=== PATIENT | female | born 1945 | race African-American/Black ===

== ENCOUNTER 2017-04-24 12:19 | Emergency (ER) | payer MEDICARE, MEDICAID ==
[~2017-04-24] VITALS: Ht 152.4 cm; Wt 55.0 kg
[~2017-04-24 12:19] MED LIST: ASPI-1159 PO; BECL8.7A6 IH; DIPH25CA83 PO; FURO20TA4 PO; METF500T4 PO; MIRT-91 PO; OMEP20CA10 PO; SIMV40TA5 PO; VERA240C2 PO
[2017-04-24] MEDS ORDERED: ACETAMINOPHEN 325MG TABLET PO ONE (16:00)
[2017-04-24] MEDS ORDERED: TETANUS, DIPHTHERIA, PERTUSSIS VAC/PF 0.5ML (>7YR OLD) IM ONE (16:30)
[2017-04-24 16:31] VITALS: BP 116/48
== END 2017-04-24 17:19 | disposition home or self-care (01) ==
LOC: ER 12:30
DX: S09.90XA Unspecified injury of head, initial encounter (principal); J44.9 Chronic obstructive pulmonary disease, unspecified; I10 Essential (primary) hypertension; V23.4XXA Motorcycle driver injured in collision with car, pick-up truck or van in traffic accident, initial encounter; Y93.89 Activity, other specified; Y92.488 Other paved roadways as the place of occurrence of the external cause; J45.909 Unspecified asthma, uncomplicated; Z79.82 Long term (current) use of aspirin
CPT/HCPCS: 70450; 70486; 90471; 90715; 99284

== ENCOUNTER 2017-07-11 22:10 | Emergency (ER) | payer MEDICARE, MEDICAID ==
[~2017-07-11] VITALS: Ht 152.4 cm; Wt 52.5 kg
[~2017-07-11 22:10] MED LIST changes: -VERA240C2 PO
[2017-07-12 01:59] LABS: CLARITY URINE CLEAR (CLEAR); COLOR URINE YELLOW (YELLOW); KETONES URINE NEGATIVE (NEGATIVE); LEUKOCYTE ESTERASE URINE 1+ (NEGATIVE); NITRITE URINE NEGATIVE (NEGATIVE); OCCULT BLOOD URINE NEGATIVE (NEGATIVE); PROTEIN URINE NEGATIVE (NEGATIVE); SPECIFIC GRAVITY URINE 1.013 (1.005-1.030); UROBILINOGEN URINE 0.2 E.U./dL (0.2-1.0)
[2017-07-12 01:59] LABS: HEMATOCRIT. 42.7 % (36.0-48.0); MEAN CORPUSCULAR HEMOGLOBIN 31.4 pg (28.0-32.0); MEAN CORPUSCULAR VOLUME 95.9 fL (81.0-99.0); MEAN PLATELET VOLUME 8.2 fl (7.4-10.4); PLATELET 293 x1000/uL (130-400); RED BLOOD CELL COUNT 4.45 mill/uL (4.2-5.4); RED CELL DISTRIBUTION WIDTH 13.4 % (11.6-14.6)
[2017-07-12] MEDS: SODIUM CHLORIDE 0.9% 1,000 ML IV ONE (02:00)
[2017-07-12] MEDS: ONDANSETRON HCL 4MG/2ML VIAL IV STA (02:00)
[2017-07-12] MEDS: FAMOTIDINE 20MG/2ML VIAL IV STA (02:00)
[2017-07-12 02:04] LABS: INR 1.1; PROTHROMBIN TIME 11.2 sec (9.4-11.6)
[2017-07-12 02:10] LABS: *AMPHETAMINES SCREEN URINE NEGATIVE (NEGATIVE); *BARBITURATES SCREEN URINE NEGATIVE (NEGATIVE); *BENZODIAZEPINES SCREEN URINE NEGATIVE (NEGATIVE); *COCAINE SCREEN URINE NEGATIVE (NEGATIVE); CANNABINOID URINE SCREEN PRESUMTIVE POSITIVE (NEGATIVE); METHADONE URINE SCREEN NEGATIVE (NEGATIVE); OPIATES URINE SCREEN NEGATIVE (NEGATIVE); PHENCYCLIDINE URINE SCREEN NEGATIVE (NEGATIVE)
[2017-07-12 02:16] LABS: CARBON DIOXIDE 26 mEq/L (21-32); CHLORIDE 95 mEq/L (98-107); ETHANOL BLOOD < 10 mg/dL; TROPONIN I < 0.02 ng/mL (0.00-0.04)
[2017-07-12 04:40] VITALS: BP 140/77
[2017-07-12 04:52] LABS: PLATELET ESTIMATE NORMAL
[2017-07-13] MEDS ORDERED: LISI-604 PO (00:14)
[2017-07-13] MEDS ORDERED: ZOLP5TAB8 PO (00:19)
[2017-07-13] MEDS ORDERED: AMLO2.5T45 PO (00:19)
[2017-07-13] MEDS ORDERED: MEGE400O23 PO (00:19)
[2017-07-13] MEDS ORDERED: POT25TAB5 PO (00:19)
[2017-07-13] MEDS ORDERED: TRAM50TA3 PO (00:19)
[2017-07-13] MEDS ORDERED: METO25TA6 PO (00:19)
[2017-07-13] MEDS ORDERED: PANT40TA4 PO (00:19)
== END 2017-07-12 04:42 | disposition home or self-care (01) ==
LOC: ER 22:10
DX: R10.13 Epigastric pain (principal); R11.2 Nausea with vomiting, unspecified; J44.9 Chronic obstructive pulmonary disease, unspecified; E11.9 Type 2 diabetes mellitus without complications; I10 Essential (primary) hypertension; K21.9 Gastro-esophageal reflux disease without esophagitis; F10.20 Alcohol dependence, uncomplicated; Z79.82 Long term (current) use of aspirin
CPT/HCPCS: 36415; 71010; 80053; 80305; 81001; 83690; 84484; 85025; 85610; 93005; 96374; 96375; 99285; G0482; J2405; J3490; J7030

== ENCOUNTER 2018-09-04 18:30 | Inpatient (IN) | payer MEDICARE, MEDICAID ==
[~2018-09-04] VITALS: Ht 152.4 cm; Wt 47.6 kg
[~2018-09-04 18:30] MED LIST changes: +AMLO2.5T45 PO; +LISI-604 PO; +MEGE400O23 PO; +METF-414 PO; -METF500T4 PO; +METO25TA6 PO; +PANT40TA4 PO; +POT25TAB5 PO; +TRAM50TA3 PO; +ZOLP5TAB8 PO
[2018-09-04] MEDS ORDERED: METHYLPREDNISOLONE SOD SUCC 125 MG/2 ML VIAL IV STA (22:30)
[2018-09-04] MEDS ORDERED: IPRATROPIUM/ALBUTEROL 0.5-3(2.5)MG/3ML NEB HHN ONE (22:30)
[2018-09-04] MEDS ORDERED: LEVOFLOXACIN 750MG PREMIX 150 ML IV ONE (22:30)
[2018-09-04 23:08] LABS: BG BASE EXCESS -6.9 mmol/L (-2.0-2.0); BG CARBOXYHEMOGLOBIN 0.7 % (0.5-1.5); BG DEOXYHEMOGLOBIN 0.8 % (0.0-5.0); BG FRACTION INSPIRED OXYGEN 60; BG HCO3 ACT 16.8 mmol/L (22.0-26.0); BG METHEMOGLOBIN 0.4 % (0.0-1.5); BG OXYGEN SATURATION 99.2 % (92.0-98.5); BG OXYHEMOGLOBIN 98.1 % (94.0-97.0); BG PCO2 28.9 mmHg (35.0-45.0); BG PH 7.383 (7.350-7.450); BG PO2 234.4 mmHg (75.0-100.0); BG SAMPLE SITE RIGHT RADIAL; BG TOTAL HEMOGLOBIN 12.5 g/dL (12.0-18.0)
[2018-09-04 23:41] LABS: HEMATOCRIT. 35.9 % (36.0-48.0); HEMOGLOBIN. 11.9 g/dL (12.0-16.0); MEAN CORPUSCULAR HEMOGLOBIN 32.2 pg (28.0-32.0); MEAN CORPUSCULAR VOLUME 97.1 fL (81.0-99.0); MEAN PLATELET VOLUME 7.6 fl (7.4-10.4); PLATELET 363 x1000/uL (130-400); RED CELL DISTRIBUTION WIDTH 15.2 % (11.6-14.6)
[2018-09-04 23:45] LABS: CHLORIDE 108 mEq/L (98-107)
[2018-09-04 23:49] LABS: ETHANOL BLOOD < 10 mg/dL
[2018-09-04 23:54] LABS: CREATINE KINASE 65 IU/L (26-192)
[2018-09-04 23:57] LABS: CREATINE KINASE MB FRACTION 1.1 ng/mL (0.5-3.6)
[2018-09-05 00:02] LABS: PARTIAL THROMBOPLASTIN TIME 22.6 sec (23.4-31.0); PROTHROMBIN TIME 9.7 sec (9.1-11.1)
[2018-09-05] MEDS ORDERED: SODIUM CHLORIDE 0.9% 500 ML IV ONE (00:10)
[2018-09-05 00:15] LABS: CLARITY URINE CLEAR (CLEAR); COLOR URINE YELLOW (YELLOW); KETONES URINE NEGATIVE (NEGATIVE); LEUKOCYTE ESTERASE URINE 3+ (NEGATIVE); NITRITE URINE NEGATIVE (NEGATIVE); OCCULT BLOOD URINE NEGATIVE (NEGATIVE); PROTEIN URINE NEGATIVE (NEGATIVE); SPECIFIC GRAVITY URINE 1.015 (1.005-1.030)
[2018-09-05 00:55] LABS: PLATELET ESTIMATE NORMAL
[2018-09-05 01:05] LABS: *AMPHETAMINES SCREEN URINE NEGATIVE (NEGATIVE); *BARBITURATES SCREEN URINE NEGATIVE (NEGATIVE); *BENZODIAZEPINES SCREEN URINE NEGATIVE (NEGATIVE); *COCAINE SCREEN URINE NEGATIVE (NEGATIVE)
[2018-09-05 01:06] LABS: CANNABINOID URINE SCREEN PRESUMTIVE POSITIVE (NEGATIVE); METHADONE URINE SCREEN NEGATIVE (NEGATIVE); OPIATES URINE SCREEN NEGATIVE (NEGATIVE); PHENCYCLIDINE URINE SCREEN NEGATIVE (NEGATIVE)
[2018-09-05] MEDS ORDERED: ONDANSETRON HCL 4MG/2ML INJ IV PRN (09:15)
[2018-09-05] MEDS ORDERED: IPRATROPIUM/ALBUTEROL 0.5-3(2.5)MG/3ML NEB HHN PRN (09:15)
[2018-09-05] MEDS ORDERED: ACETAMINOPHEN 325MG TABLET PO PRN (09:15)
[2018-09-05] MEDS ORDERED: CEFTRIAXONE 1 G PREMIX 50 ML IV SCH (11:45)
[2018-09-05] MEDS: METHYLPREDNISOLONE SOD SUCC 40 MG/ML VIAL IV SCH ×2 (12:02→21:02)
[2018-09-05] MEDS: IPRATROPIUM/ALBUTEROL 0.5-3(2.5)MG/3ML NEB HHN SCH (12:20)
[2018-09-05 16:00] VITALS: BP 152/70
[2018-09-05 16:45] VITALS: BP 150/68
[2018-09-05] MEDS ORDERED: DIATR MEGLU/DIATRIZOATE SOLN 30ML PO SCH (17:00)
[2018-09-05] MEDS: AZITHROMYCIN 500 MG TABLET PO SCH (17:24)
[2018-09-05] MEDS: MONTELUKAST SODIUM 10MG TABLET PO SCH (17:24)
[2018-09-05] MEDS: ENOXAPARIN 40MG/0.4ML SYR SUBCUT SCH (17:28)
[2018-09-05 20:00] VITALS: BP 126/69
[2018-09-05] MEDS: GUAIFENESIN 600MG ER TABLET PO SCH (21:02)
[2018-09-06] VITALS (7 sets, daily range): BP systolic 123–177; BP diastolic 41–70
[2018-09-06] MEDS: IPRATROPIUM/ALBUTEROL 0.5-3(2.5)MG/3ML NEB HHN SCH ×7 (01:25→21:52)
[2018-09-06] MEDS: METHYLPREDNISOLONE SOD SUCC 40 MG/ML VIAL IV SCH ×3 (04:04→21:16)
[2018-09-06] MEDS ORDERED: DIATR MEGLU/DIATRIZOATE SOLN 30ML PO SCH (06:00)
[2018-09-06 07:55] LABS: HEMATOCRIT. 37.8 % (36.0-48.0); HEMOGLOBIN. 12.5 g/dL (12.0-16.0); MEAN CORPUSCULAR HEMOGLOBIN 31.8 pg (28.0-32.0); MEAN CORPUSCULAR VOLUME 95.8 fL (81.0-99.0); MEAN PLATELET VOLUME 7.4 fl (7.4-10.4); PLATELET 379 x1000/uL (130-400); RED BLOOD CELL COUNT 3.94 mill/uL (4.2-5.4); RED CELL DISTRIBUTION WIDTH 15.5 % (11.6-14.6)
[2018-09-06 08:05] LABS: CHLORIDE 109 mEq/L (98-107)
[2018-09-06] MEDS: GUAIFENESIN 600MG ER TABLET PO SCH ×2 (10:02→21:16)
[2018-09-06] MEDS: AZITHROMYCIN 500 MG TABLET PO SCH (10:02)
[2018-09-06 10:32] LABS: PLATELET ESTIMATE NORMAL
[2018-09-06] MEDS: CEFTRIAXONE 1 G PREMIX 50 ML IV SCH (10:53)
[2018-09-06] MEDS ORDERED: IOHEXOL-350 100 ML BOTTLE ONE (13:59)
[2018-09-06] MEDS ORDERED: OMEPRAZOLE 20MG CAPSULE EXTENDED RELEASE PO SCH (14:15)
[2018-09-06] MEDS: MEGESTROL ACETATE 400 MG/10 ML UDC PO SCH ×3 (15:07→21:00)
[2018-09-06] MEDS: MIRTAZAPINE 30MG TABLET PO SCH (19:56)
[2018-09-06] MEDS: MONTELUKAST SODIUM 10MG TABLET PO SCH (19:56)
[2018-09-06] MEDS: ENOXAPARIN 40MG/0.4ML SYR SUBCUT SCH (19:59)
[2018-09-06] MEDS: ATORVASTATIN CALCIUM 40MG TABLET PO SCH (21:16)
[2018-09-07] VITALS: BP 138/70
[2018-09-07] MEDS: IPRATROPIUM/ALBUTEROL 0.5-3(2.5)MG/3ML NEB HHN SCH ×5 (01:04→20:28)
[2018-09-07 04:00] VITALS: BP 153/49
[2018-09-07] MEDS: METHYLPREDNISOLONE SOD SUCC 40 MG/ML VIAL IV SCH ×3 (04:02→20:00)
[2018-09-07 06:45] LABS: CHLORIDE 109 mEq/L (98-107)
[2018-09-07] MEDS: OMEPRAZOLE 20MG CAPSULE EXTENDED RELEASE PO SCH ×2 (06:45→08:48)
[2018-09-07 06:46] LABS: MEAN CORPUSCULAR HEMOGLOBIN 31.9 pg (28.0-32.0); MEAN CORPUSCULAR VOLUME 95.5 fL (81.0-99.0); MEAN PLATELET VOLUME 7.6 fl (7.4-10.4); PLATELET 388 x1000/uL (130-400); RED BLOOD CELL COUNT 4.09 mill/uL (4.2-5.4); RED CELL DISTRIBUTION WIDTH 15.2 % (11.6-14.6)
[2018-09-07 08:00] VITALS: BP 161/68
[2018-09-07] MEDS: MIRTAZAPINE 30MG TABLET PO SCH ×2 (08:48→17:43)
[2018-09-07] MEDS: GUAIFENESIN 600MG ER TABLET PO SCH ×2 (08:49→21:00)
[2018-09-07] MEDS: AZITHROMYCIN 500 MG TABLET PO SCH (08:49)
[2018-09-07] MEDS: CEFTRIAXONE 1 G PREMIX 50 ML IV SCH (10:00)
[2018-09-07 12:00] VITALS: BP 159/58
[2018-09-07 12:26] LABS: NUCLEATED RED BLOOD CELLS 1 /100 WBC; PLATELET ESTIMATE NORMAL
[2018-09-07] MEDS: AMLODIPINE 5MG TABLET PO SCH (12:48)
[2018-09-07] MEDS: METOPROLOL TARTRATE 50MG TABLET PO SCH ×2 (12:48→21:00)
[2018-09-07] MEDS: MEGESTROL ACETATE 400 MG/10 ML UDC PO SCH (13:00)
[2018-09-07] MEDS: CEFTRIAXONE 1,000 MG in DEXTROSE 5% WATER 50 ML IV SCH (15:32)
[2018-09-07 16:00] VITALS: BP 116/50
[2018-09-07] MEDS: ENOXAPARIN 40MG/0.4ML SYR SUBCUT SCH (17:43)
[2018-09-07] MEDS: MONTELUKAST SODIUM 10MG TABLET PO SCH (17:43)
[2018-09-07] MEDS: METFORMIN HCL 500MG TABLET PO SCH (17:43)
[2018-09-07 20:00] VITALS: BP 116/77
[2018-09-07] MEDS: ATORVASTATIN CALCIUM 40MG TABLET PO SCH (21:00)
[2018-09-07] MEDS: INSULIN GLARGINE UD 100 UNITS/ML SYR SUBCUT SCH (22:00)
[2018-09-08] VITALS: BP 110/57
[2018-09-08] MEDS: IPRATROPIUM/ALBUTEROL 0.5-3(2.5)MG/3ML NEB HHN SCH ×7 (00:38→21:05)
[2018-09-08] MEDS: METHYLPREDNISOLONE SOD SUCC 40 MG/ML VIAL IV SCH (03:15)
[2018-09-08 04:01] VITALS: BP 114/62
[2018-09-08 06:59] LABS: CHLORIDE 106 mEq/L (98-107)
[2018-09-08 07:05] LABS: BASOPHILS % 0.2 % (0.0-2.0); HEMATOCRIT. 40.3 % (36.0-48.0); HEMOGLOBIN. 13.1 g/dL (12.0-16.0); MEAN CORPUSCULAR HEMOGLOBIN 31.1 pg (28.0-32.0); MEAN CORPUSCULAR VOLUME 95.8 fL (81.0-99.0); MEAN PLATELET VOLUME 7.5 fl (7.4-10.4); MONOCYTES % 13.7 % (2.0-8.0); NEUTROPHILS % 78.1 % (40.0-76.0); PLATELET 411 x1000/uL (130-400); RED BLOOD CELL COUNT 4.21 mill/uL (4.2-5.4); RED CELL DISTRIBUTION WIDTH 15.4 % (11.6-14.6)
[2018-09-08 08:00] VITALS: BP 144/60
[2018-09-08] MEDS: MEGESTROL ACETATE 400 MG/10 ML UDC PO SCH ×5 (09:00→20:54)
[2018-09-08] MEDS: AZITHROMYCIN 500 MG TABLET PO SCH (09:07)
[2018-09-08] MEDS: FAMOTIDINE 20MG TABLET PO SCH (09:08)
[2018-09-08] MEDS: METOPROLOL TARTRATE 50MG TABLET PO SCH ×2 (09:08→20:54)
[2018-09-08] MEDS: GUAIFENESIN 600MG ER TABLET PO SCH ×2 (09:08→20:54)
[2018-09-08] MEDS: MIRTAZAPINE 30MG TABLET PO SCH ×2 (09:09→16:34)
[2018-09-08] MEDS: AMLODIPINE 5MG TABLET PO SCH (09:09)
[2018-09-08] MEDS: METFORMIN HCL 500MG TABLET PO SCH ×2 (09:13→16:35)
[2018-09-08] MEDS: PREDNISONE 20MG TABLET PO SCH (10:36)
[2018-09-08] MEDS: ENOXAPARIN 40MG/0.4ML SYR SUBCUT SCH (10:51)
[2018-09-08 12:35] VITALS: BP 144/63
[2018-09-08] MEDS: MONTELUKAST SODIUM 10MG TABLET PO SCH (16:34)
[2018-09-08 16:43] VITALS: BP 144/55
[2018-09-08 19:51] VITALS: BP 135/63
[2018-09-08] MEDS ORDERED: DEXTROSE 50% WATER 50ML SYRINGE IV PRN (20:15)
[2018-09-08] MEDS: ATORVASTATIN CALCIUM 40MG TABLET PO SCH (20:54)
[2018-09-08] MEDS: BLOOD SUGAR DIAGNOSTIC STRIP TEST SCH (20:55)
[2018-09-08] MEDS: INSULIN LISPRO 100 UNITS/ML SUBCUT SCH (21:00)
[2018-09-08] MEDS: INSULIN GLARGINE UD 100 UNITS/ML SYR SUBCUT SCH (21:01)
[2018-09-09 00:05] VITALS: BP 132/52
[2018-09-09] MEDS: IPRATROPIUM/ALBUTEROL 0.5-3(2.5)MG/3ML NEB HHN SCH ×5 (01:05→16:15)
[2018-09-09 04:00] VITALS: BP 133/49
[2018-09-09 07:12] LABS: BASOPHILS % 0.2 % (0.0-2.0); EOSINOPHILS % 0.1 % (0.0-5.0); HEMATOCRIT. 38.9 % (36.0-48.0); HEMOGLOBIN. 12.9 g/dL (12.0-16.0); LYMPHOCYTES % 10.7 % (20.0-50.0); MEAN CORPUSCULAR HEMOGLOBIN 31.8 pg (28.0-32.0); MEAN CORPUSCULAR VOLUME 96.1 fL (81.0-99.0); MEAN PLATELET VOLUME 7.6 fl (7.4-10.4); MONOCYTES % 12.2 % (2.0-8.0); NEUTROPHILS % 76.8 % (40.0-76.0); PLATELET 369 x1000/uL (130-400); RED BLOOD CELL COUNT 4.05 mill/uL (4.2-5.4); RED CELL DISTRIBUTION WIDTH 15.1 % (11.6-14.6)
[2018-09-09] MEDS: BLOOD SUGAR DIAGNOSTIC STRIP TEST SCH ×2 (07:40→13:18)
[2018-09-09 08:01] LABS: CHLORIDE 107 mEq/L (98-107)
[2018-09-09] MEDS: INSULIN LISPRO 100 UNITS/ML SUBCUT SCH ×2 (08:10→13:10)
[2018-09-09] MEDS: MEGESTROL ACETATE 400 MG/10 ML UDC PO SCH (08:39)
[2018-09-09] MEDS: METOPROLOL TARTRATE 50MG TABLET PO SCH (08:40)
[2018-09-09] MEDS: CEFTRIAXONE 1,000 MG in DEXTROSE 5% WATER 50 ML IV SCH (08:40)
[2018-09-09] MEDS: METFORMIN HCL 500MG TABLET PO SCH (08:40)
[2018-09-09] MEDS: FAMOTIDINE 20MG TABLET PO SCH (08:40)
[2018-09-09] MEDS: AMLODIPINE 5MG TABLET PO SCH (08:40)
[2018-09-09] MEDS: AZITHROMYCIN 500 MG TABLET PO SCH (08:40)
[2018-09-09] MEDS: GUAIFENESIN 600MG ER TABLET PO SCH (08:40)
[2018-09-09] MEDS: MIRTAZAPINE 30MG TABLET PO SCH (08:40)
[2018-09-09] MEDS: PREDNISONE 20MG TABLET PO SCH (09:41)
[2018-09-09 12:00] VITALS: BP 152/59
[2018-09-09 14:38] VITALS: BP 152/59
== END 2018-09-09 14:30 | disposition home or self-care (01) | DRG 48 ==
LOC: ER 18:55 → 7WST 09-05 01:03 → EDBEDREQTM 09-05 01:27 → EDBEDREQ 09-05 01:27 → EDBEDREQDT 09-05 01:27 → ENRESERV 09-05 13:57 → 7WST 09-05 16:25
PROVIDERS: ADMIT Internal Medicine; ATTEND Internal Medicine
DX: G90.8 Other disorders of autonomic nervous system (principal); E46 Unspecified protein-calorie malnutrition; E87.8 Other disorders of electrolyte and fluid balance, not elsewhere classified; I27.20 Pulmonary hypertension, unspecified; J44.1 Chronic obstructive pulmonary disease with (acute) exacerbation; I65.23 Occlusion and stenosis of bilateral carotid arteries; E11.9 Type 2 diabetes mellitus without complications; J32.9 Chronic sinusitis, unspecified; K75.9 Inflammatory liver disease, unspecified; N39.0 Urinary tract infection, site not specified; F12.90 Cannabis use, unspecified, uncomplicated; E78.5 Hyperlipidemia, unspecified; E78.00 Pure hypercholesterolemia, unspecified; F14.90 Cocaine use, unspecified, uncomplicated; F17.200 Nicotine dependence, unspecified, uncomplicated; F32.9 Major depressive disorder, single episode, unspecified; F41.9 Anxiety disorder, unspecified; G43.909 Migraine, unspecified, not intractable, without status migrainosus; H91.90 Unspecified hearing loss, unspecified ear; I10 Essential (primary) hypertension; K21.9 Gastro-esophageal reflux disease without esophagitis; K80.20 Calculus of gallbladder without cholecystitis without obstruction; M19.90 Unspecified osteoarthritis, unspecified site; M47.812 Spondylosis without myelopathy or radiculopathy, cervical region; Z79.82 Long term (current) use of aspirin; Z79.84 Long term (current) use of oral hypoglycemic drugs; Z79.899 Other long term (current) drug therapy; Z80.3 Family history of malignant neoplasm of breast; Z82.49 Family history of ischemic heart disease and other diseases of the circulatory system; Z68.20 Body mass index [BMI] 20.0-20.9, adult
CPT/HCPCS: 36415; 36600; 70498; 70551; 71045; 74176; 80048; 80061; 80305; 82375; 82550; 82553; 82805; 82962; 83036; 83605; 83880; 84443; 84484; 93005; 93306; 93880; 94640; 96365; 96375; 99285; J0696; J1650; J1815; J1956; J2920; J2930; J7040; J7050; J7060; J7512; J7620; Q9963; Q9967

== ENCOUNTER 2019-04-01 20:04 | Inpatient (IN) | payer MEDICARE, MEDICAID ==
[~2019-04-01] VITALS: Ht 160 cm; Wt 44.9 kg
[~2019-04-01 20:04] MED LIST changes: -ASPI-1159 PO; +ASPI-1393 PO; -OMEP20CA10 PO; +OMEP20CA5 PO
[2019-04-01] MEDS ORDERED: SODIUM CHLORIDE 0.9% 1000ML BAG (SEPSIS BOLUS) IV ONE (20:30)
[2019-04-01 20:51] LABS: HEMATOCRIT. 34.4 % (36.0-48.0); HEMOGLOBIN. 11.5 g/dL (12.0-16.0); MEAN CORPUSCULAR HEMOGLOBIN 31.3 pg (28.0-32.0); MEAN CORPUSCULAR VOLUME 93.8 fL (81.0-99.0); MEAN PLATELET VOLUME 8.1 fl (7.4-10.4); PLATELET 289 x1000/uL (130-400); RED BLOOD CELL COUNT 3.67 mill/uL (4.2-5.4)
[2019-04-01 20:54] LABS: CHLORIDE 99 mEq/L (98-107); PROTHROMBIN TIME 10.5 sec (9.6-11.0)
[2019-04-01] MEDS ORDERED: LEVETIRACETAM 500MG PREMIX 100 ML IV ONE (21:00)
[2019-04-01 21:18] LABS: PLATELET ESTIMATE NORMAL
[2019-04-01] MEDS ORDERED: MAGNESIUM 2 G PREMIX 50 ML IV ONE (21:30)
[2019-04-01] MEDS ORDERED: POTASSIUM CHLORIDE 20MEQ TABLET SR PO ONE (21:30)
[2019-04-01] MEDS ORDERED: KCL 20MEQ/100ML PREMIX 100 ML IV ONE (21:30)
[2019-04-01] MEDS ORDERED: DEXT 5%/0.45% NACL 1000ML 1,000 ML IV SCH (22:29)
[2019-04-01] MEDS ORDERED: MAGNESIUM/ALUMINUM HYDROXIDE/SIMETHICONE 30ML UDC PO PRN (22:30)
[2019-04-01] MEDS ORDERED: CLONIDINE 0.1MG TABLET PO PRN (22:30)
[2019-04-01] MEDS ORDERED: HYDROCODONE/ACETAMINOPHEN 5/325MG TABLET PO PRN (22:30)
[2019-04-01] MEDS ORDERED: LORAZEPAM 2MG/ML CPJ IV PRN (22:30)
[2019-04-01] MEDS ORDERED: DOCUSATE SODIUM 100MG CAPSULE PO PRN (22:30)
[2019-04-01] MEDS ORDERED: ONDANSETRON HCL 4MG/2ML INJ IV PRN (22:30)
[2019-04-01] MEDS: ACETAMINOPHEN 325MG TABLET PO PRN (23:36)
[2019-04-02] VITALS (7 sets, daily range): BP systolic 88–137; BP diastolic 27–82
[2019-04-02 06:53] LABS: HEMATOCRIT. 29.6 % (36.0-48.0); MEAN CORPUSCULAR HEMOGLOBIN 31.5 pg (28.0-32.0); MEAN CORPUSCULAR VOLUME 93.6 fL (81.0-99.0); MEAN PLATELET VOLUME 8.6 fl (7.4-10.4); PLATELET 245 x1000/uL (130-400); RED BLOOD CELL COUNT 3.17 mill/uL (4.2-5.4); RED CELL DISTRIBUTION WIDTH 14.8 % (11.6-14.6)
[2019-04-02 07:38] LABS: CHLORIDE 110 mEq/L (98-107)
[2019-04-02 07:45] LABS: PHOSPHORUS 2.7 mg/dL (2.5-4.9)
[2019-04-02] MEDS ORDERED: SODIUM CHLORIDE 0.9% 1000ML BAG (SEPSIS BOLUS) IV ONE (09:15)
[2019-04-02] MEDS: SODIUM CHLORIDE 0.9% 1,000 ML IV SCH (09:22)
[2019-04-02] MEDS ORDERED: SODIUM CHLORIDE 0.9% 250 ML IV SCH (09:30)
[2019-04-02] MEDS: LEVETIRACETAM 500MG TABLET PO SCH ×2 (10:30→21:17)
[2019-04-02] MEDS: MULTIVITAMINS,THER W-MINERALS TABLET PO SCH (10:30)
[2019-04-02] MEDS: FOLIC ACID 1MG TABLET PO SCH (10:30)
[2019-04-02] MEDS: THIAMINE HCL 100MG TABLET PO SCH (10:31)
[2019-04-02 10:35] LABS: PLATELET ESTIMATE NORMAL
[2019-04-02] MEDS ORDERED: AMLO5TAB88 MT (10:38)
[2019-04-02] MEDS ORDERED: ATOR20TA65 MT (10:38)
[2019-04-02] MEDS ORDERED: MULT-1146 MT (10:38)
[2019-04-02] MEDS ORDERED: LISI-604 MT (10:38)
[2019-04-02] MEDS ORDERED: THIA50TA11 MT (10:38)
[2019-04-02] MEDS ORDERED: CLON-457 MT (10:38)
[2019-04-02] MEDS ORDERED: UMEC1DIS IH (10:38)
[2019-04-02] MEDS ORDERED: ESOM40CA53 MT (10:38)
[2019-04-02] MEDS ORDERED: METF-414 MT (10:38)
[2019-04-02] MEDS ORDERED: ALBU18HF2 IH (10:40)
[2019-04-02 14:37] LABS: HEMATOCRIT 35.1 % (36.0-48.0); HEMOGLOBIN 11.5 g/dL (12.0-16.0)
[2019-04-02] MEDS: ACETAMINOPHEN 325MG TABLET PO PRN (19:03)
[2019-04-02] MEDS: ASPIRIN 81MG TABLET PO SCH (19:04)
[2019-04-02] MEDS: ATORVASTATIN CALCIUM 40MG TABLET PO SCH (21:17)
[2019-04-03] VITALS: BP 140/59
[2019-04-03 02:35] LABS: *AMPHETAMINES SCREEN URINE NEGATIVE (NEGATIVE); *BARBITURATES SCREEN URINE NEGATIVE (NEGATIVE); *BENZODIAZEPINES SCREEN URINE NEGATIVE (NEGATIVE); *COCAINE SCREEN URINE NEGATIVE (NEGATIVE)
[2019-04-03 02:36] LABS: CANNABINOID URINE SCREEN PRESUMTIVE POSITIVE (NEGATIVE); METHADONE URINE SCREEN NEGATIVE (NEGATIVE); OPIATES URINE SCREEN NEGATIVE (NEGATIVE); PHENCYCLIDINE URINE SCREEN NEGATIVE (NEGATIVE)
[2019-04-03] MEDS: SODIUM CHLORIDE 0.9% 1,000 ML IV SCH ×2 (03:49→21:36)
[2019-04-03 04:00] VITALS: BP 157/63
[2019-04-03 07:17] LABS: HEMOGLOBIN. 11.5 g/dL (12.0-16.0); MEAN CORPUSCULAR HEMOGLOBIN 31.5 pg (28.0-32.0); MEAN CORPUSCULAR VOLUME 93.4 fL (81.0-99.0); MEAN PLATELET VOLUME 8.5 fl (7.4-10.4); PLATELET 257 x1000/uL (130-400); RED BLOOD CELL COUNT 3.64 mill/uL (4.2-5.4); RED CELL DISTRIBUTION WIDTH 15.1 % (11.6-14.6)
[2019-04-03 07:19] LABS: CHLORIDE 111 mEq/L (98-107)
[2019-04-03 07:25] LABS: LDL CHOLESTEROL 66 mg/dL (5-100)
[2019-04-03 07:29] LABS: HDL CHOLESTEROL 91 mg/dL (40-59)
[2019-04-03 08:00] VITALS: BP 103/46
[2019-04-03] MEDS: LEVETIRACETAM 500MG TABLET PO SCH ×2 (09:14→21:35)
[2019-04-03] MEDS: MULTIVITAMINS,THER W-MINERALS TABLET PO SCH (09:14)
[2019-04-03] MEDS: FOLIC ACID 1MG TABLET PO SCH (09:15)
[2019-04-03] MEDS: ASPIRIN 81MG TABLET PO SCH (09:15)
[2019-04-03] MEDS: THIAMINE HCL 100MG TABLET PO SCH (09:15)
[2019-04-03] MEDS ORDERED: IOHEXOL-350 100 ML BOTTLE ONE (10:16)
[2019-04-03 12:00] VITALS: BP 155/59
[2019-04-03] MEDS ORDERED: POTASSIUM CHLORIDE 20MEQ TABLET SR PO NR (13:00)
[2019-04-03 13:43] LABS: PLATELET ESTIMATE NORMAL
[2019-04-03] MEDS: MIDODRINE HCL 5MG TABLET PO SCH ×2 (14:01→18:02)
[2019-04-03 16:00] VITALS: BP 143/53
[2019-04-03] MEDS: ACETAMINOPHEN 325MG TABLET PO PRN (21:35)
[2019-04-03] MEDS: ATORVASTATIN CALCIUM 40MG TABLET PO SCH (21:35)
[2019-04-03 23:58] VITALS: BP 135/50
[2019-04-04 04:00] VITALS: BP 134/81
[2019-04-04 06:39] LABS: HEMATOCRIT. 33.4 % (36.0-48.0); HEMOGLOBIN. 11.5 g/dL (12.0-16.0); MEAN CORPUSCULAR HEMOGLOBIN 31.9 pg (28.0-32.0); MEAN CORPUSCULAR VOLUME 92.6 fL (81.0-99.0); MEAN PLATELET VOLUME 8.9 fl (7.4-10.4); PLATELET 266 x1000/uL (130-400); RED BLOOD CELL COUNT 3.61 mill/uL (4.2-5.4); RED CELL DISTRIBUTION WIDTH 15.2 % (11.6-14.6)
[2019-04-04 07:00] LABS: CHLORIDE 110 mEq/L (98-107)
[2019-04-04 07:59] VITALS: BP 137/62
[2019-04-04] MEDS: ASPIRIN 81MG TABLET PO SCH (09:57)
[2019-04-04] MEDS: THIAMINE HCL 100MG TABLET PO SCH (09:57)
[2019-04-04] MEDS: FOLIC ACID 1MG TABLET PO SCH (09:57)
[2019-04-04] MEDS: MULTIVITAMINS,THER W-MINERALS TABLET PO SCH (09:57)
[2019-04-04] MEDS: LEVETIRACETAM 500MG TABLET PO SCH (09:57)
[2019-04-04] MEDS: MIDODRINE HCL 5MG TABLET PO SCH (10:17)
[2019-04-04] MEDS ORDERED: KEPP500 PO (11:27)
[2019-04-04] MEDS ORDERED: MIDO5TAB PO (11:27)
[2019-04-04 12:00] VITALS: BP 149/80
[2019-04-04 13:36] LABS: PLATELET ESTIMATE NORMAL
[2019-04-04 13:54] VITALS: BP 149/80
== END 2019-04-04 15:16 | disposition home health service (06) | DRG 53 ==
LOC: ER 20:04 → 7WST 21:59 → EDBEDREQ 22:01 → EDBEDREQTM 22:01 → ENRESERV 23:43
PROVIDERS: ADMIT Family Medicine Adult Medicine; ATTEND Family Medicine Adult Medicine
PROC: 4A00X4Z Measurement of Central Nervous Electrical Activity, External Approach (ICD-10-PCS; principal; 2019-04-03)
DX: G40.909 Epilepsy, unspecified, not intractable, without status epilepticus (principal); E11.9 Type 2 diabetes mellitus without complications; D64.9 Anemia, unspecified; E83.51 Hypocalcemia; I65.23 Occlusion and stenosis of bilateral carotid arteries; E78.00 Pure hypercholesterolemia, unspecified; E78.5 Hyperlipidemia, unspecified; J44.9 Chronic obstructive pulmonary disease, unspecified; I10 Essential (primary) hypertension; K21.9 Gastro-esophageal reflux disease without esophagitis; E87.6 Hypokalemia; F10.20 Alcohol dependence, uncomplicated; I95.1 Orthostatic hypotension; R90.82 White matter disease, unspecified; R41.3 Other amnesia; Z82.49 Family history of ischemic heart disease and other diseases of the circulatory system; Z83.3 Family history of diabetes mellitus; Z79.899 Other long term (current) drug therapy; Z79.84 Long term (current) use of oral hypoglycemic drugs; Z79.82 Long term (current) use of aspirin
CPT/HCPCS: 36415; 70496; 70498; 70544; 70553; 71045; 80048; 80061; 80305; 80320; 82962; 83036; 83605; 83735; 83880; 84100; 84145; 84443; 84484; 85014; 85018; 93005; 93306; 93880; 93970; 97162; 99291; J1953; J2405; J3475; J3480; J7030; Q9967; G0480

== ENCOUNTER 2020-09-13 18:58 | Inpatient (IN) | payer MEDICARE, MEDICAID ==
[~2020-09-13] VITALS: Ht 152.4 cm; Wt 45.1 kg
[~2020-09-13 18:58] MED LIST changes: +ALBU18HF2 IH; -AMLO2.5T45 PO; -ASPI-1393 PO; +ASPI-1497 PO; +ATOR20TA65 MT; +ESOM40CA53 MT; -FURO20TA4 PO; +KEPP500 PO; -LISI-604 PO; +METF-414 MT; -METO25TA6 PO; +MIDO5TAB4 PO; +MULT-1146 MT; +OMEP20CA14 PO; -OMEP20CA5 PO; -PANT40TA4 PO; +PANT40TA51 PO; +SIMV-46 PO; -SIMV40TA5 PO; +THIA50TA12 MT; +UMEC1DIS IH; -ZOLP5TAB8 PO
[2020-09-13] MEDS ORDERED: SODIUM CHLORIDE 0.9% 1,000 ML IV ONE (19:15)
[2020-09-13 19:56] LABS: HEMATOCRIT. 35.1 % (36.0-48.0); HEMOGLOBIN. 11.9 g/dL (12.0-16.0); MEAN CORPUSCULAR HEMOGLOBIN 33.1 pg (28.0-32.0); MEAN CORPUSCULAR VOLUME 97.4 fL (81.0-99.0); MEAN PLATELET VOLUME 7.7 fl (7.4-10.4); PLATELET 248 x1000/uL (130-400); RED BLOOD CELL COUNT 3.61 mill/uL (4.2-5.4); RED CELL DISTRIBUTION WIDTH 14.7 % (11.6-14.6)
[2020-09-13 20:15] LABS: PROTHROMBIN TIME 11.1 sec (9.6-11.0)
[2020-09-13 20:16] LABS: CHLORIDE 106 mEq/L (98-107)
[2020-09-13 20:24] LABS: PLATELET ESTIMATE NORMAL
[2020-09-13] MEDS ORDERED: MORPHINE SULFATE 4 MG/ML CPJ (NOT FOR IM USE) IV ONE (23:45)
[2020-09-14] MEDS ORDERED: SODIUM CHLORIDE 0.9% 1,000 ML IV ONE
[2020-09-14] MEDS ORDERED: ONDANSETRON HCL 4MG/2ML INJ IV PRN (01:30)
[2020-09-14] MEDS ORDERED: CLONIDINE 0.1MG TABLET PO PRN (01:30)
[2020-09-14] MEDS ORDERED: ACETAMINOPHEN 325MG TABLET PO PRN (01:30)
[2020-09-14] MEDS ORDERED: ZOLPIDEM TARTRATE 5MG TABLET PO PRN (01:30)
[2020-09-14] MEDS: INSULIN LISPRO 100 UNITS/ML SUBCUT SCH ×4 (01:30→17:39)
[2020-09-14] MEDS ORDERED: DIPHENHYDRAMINE 50MG/ML VIAL IV PRN (01:30)
[2020-09-14] MEDS ORDERED: DEXTROSE 50% WATER 50ML SYRINGE IV PRN (01:30)
[2020-09-14] MEDS: SODIUM CHLORIDE 0.9% 1,000 ML IV SCH ×2 (01:44→12:28)
[2020-09-14] MEDS ORDERED: MULTIVITAMINS,THER W-MINERALS TABLET PO NR (01:45)
[2020-09-14] MEDS: BLOOD SUGAR DIAGNOSTIC STRIP TEST SCH ×4 (01:45→17:39)
[2020-09-14] MEDS ORDERED: FOLIC ACID 1 MG, THIAMINE HCL 100 MG in SODIUM CHLORIDE 0.9% 1,000 ML IV NR (02:00)
[2020-09-14 08:30] VITALS: BP 117/51
[2020-09-14 10:05] LABS: CLARITY URINE CLEAR (CLEAR); COLOR URINE YELLOW (YELLOW); KETONES URINE NEGATIVE (NEGATIVE); LEUKOCYTE ESTERASE URINE 1+ (NEGATIVE); NITRITE URINE NEGATIVE (NEGATIVE); OCCULT BLOOD URINE NEGATIVE (NEGATIVE); PH URINE 5.5 (4.5-8.0); PROTEIN URINE NEGATIVE (NEGATIVE); SPECIFIC GRAVITY URINE 1.017 (1.005-1.030); UROBILINOGEN URINE 0.2 E.U./dL (0.2-1.0)
[2020-09-14] MEDS: ACETAMINOPHEN 325MG TABLET PO PRN ×2 (10:48→17:40)
[2020-09-14 12:00] VITALS: BP 134/58
[2020-09-14 16:00] VITALS: BP 131/58
[2020-09-14 18:13] VITALS: BP 131/58
== END 2020-09-14 20:20 | disposition home or self-care (01) | DRG 249 ==
LOC: ER 18:58 → 6EST 09-14 00:01 → EDBEDREQ 09-14 00:12 → EDBEDREQSVC 09-14 00:12 → EDBEDREQDT 09-14 00:12 → EDBEDREQTM 09-14 00:12 → ENRESERV 09-14 07:56
PROVIDERS: ADMIT Internal Medicine; ATTEND Internal Medicine
DX: E86.0 Dehydration (principal); N17.9 Acute kidney failure, unspecified; K52.9 Noninfective gastroenteritis and colitis, unspecified; E11.9 Type 2 diabetes mellitus without complications; J44.9 Chronic obstructive pulmonary disease, unspecified; E78.00 Pure hypercholesterolemia, unspecified; R63.0 Anorexia; I10 Essential (primary) hypertension; Z87.891 Personal history of nicotine dependence; Z68.1 Body mass index [BMI] 19.9 or less, adult
CPT/HCPCS: 36415; 71045; 80053; 81003; 82962; 83605; 83880; 84484; 85025; 93005; 99285; J2270; J3411; J3490; J7030

== ENCOUNTER 2021-03-01 01:16 | Inpatient (IN) | payer MEDICARE, MEDICAID ==
[~2021-03-01] VITALS: Ht 152.4 cm; Wt 45.4 kg
[2021-03-01] MEDS ORDERED: ONDANSETRON HCL 4MG/2ML INJ IV STA (01:56)
[2021-03-01] MEDS ORDERED: FAMOTIDINE 20MG/2ML VIAL IV STA (01:56)
[2021-03-01] MEDS ORDERED: SODIUM CHLORIDE 0.9% 1,000 ML IV ONE (02:00)
[2021-03-01 02:28] LABS: CHLORIDE 99 mEq/L (98-107)
[2021-03-01 02:32] LABS: ETHANOL BLOOD 227 mg/dL
[2021-03-01 02:54] LABS: HEMATOCRIT. 42.3 % (36.0-48.0); HEMOGLOBIN. 13.9 g/dL (12.0-16.0); MEAN CORPUSCULAR HEMOGLOBIN 32.2 pg (28.0-32.0); MEAN CORPUSCULAR VOLUME 97.8 fL (81.0-99.0); MEAN PLATELET VOLUME 8.1 fl (7.4-10.4); PLATELET 237 x1000/uL (130-400); RED BLOOD CELL COUNT 4.32 mill/uL (4.2-5.4); RED CELL DISTRIBUTION WIDTH 15.9 % (11.6-14.6)
[2021-03-01] MEDS ORDERED: METOCLOPRAMIDE HCL 10MG/2ML VIAL IV ONE (03:45)
[2021-03-01] MEDS ORDERED: NITROGLYCERIN 0.4MG TABLET SL SL PRN (07:45)
[2021-03-01] MEDS ORDERED: MAGNESIUM/ALUMINUM HYDROXIDE/SIMETHICONE 30ML UDC PO PRN (07:45)
[2021-03-01] MEDS ORDERED: GUAIFENESIN 200MG/10ML SUGAR FREE UDC PO PRN (07:45)
[2021-03-01] MEDS ORDERED: DOCUSATE SODIUM 100MG CAPSULE PO PRN (07:45)
[2021-03-01] MEDS ORDERED: CLONIDINE 0.1MG TABLET PO PRN (07:45)
[2021-03-01] MEDS ORDERED: ACETAMINOPHEN 325MG TABLET PO PRN (07:45)
[2021-03-01] MEDS ORDERED: IPRATROPIUM/ALBUTEROL 0.5-3(2.5)MG/3ML NEB NEB PRN (07:45)
[2021-03-01 08:08] LABS: PLATELET ESTIMATE NORMAL
[2021-03-01 08:08] LABS: TOTAL IRON BINDING CAPACITY 374 ug/dL (250-450)
[2021-03-01 08:25] LABS: FOLIC ACID (FOLATE) SERUM 15.9 ng/mL (>5.38)
[2021-03-01] MEDS ORDERED: MVI, ADULT NO.1 10 ML, FOLIC ACID 1 MG, THIAMINE HCL 100 MG in SODIUM CHLORIDE 0.9% 1,0... IV ONE (08:30)
[2021-03-01] MEDS: PANTOPRAZOLE SODIUM 40 MG/VIAL IV SCH (09:08)
[2021-03-01] MEDS: ENOXAPARIN 30MG/0.3ML SYR SUBCUT SCH (09:08)
[2021-03-01 11:30] VITALS: BP 173/66
[2021-03-01] MEDS: ONDANSETRON HCL 4MG/2ML INJ IV PRN ×2 (12:09→17:06)
[2021-03-01] MEDS: SUCRALFATE 1 G/10 ML UDC PO SCH ×4 (12:20→21:26)
[2021-03-01] MEDS: ACETAMINOPHEN 325MG TABLET PO PRN ×2 (12:32→21:26)
[2021-03-01 16:00] VITALS: BP 193/67
[2021-03-01] MEDS: AMLODIPINE 10MG TABLET PO SCH (17:02)
[2021-03-01] MEDS ORDERED: METO25TA6 PO (17:27)
[2021-03-01] MEDS ORDERED: OMEP40CA12 PO (17:27)
[2021-03-01] MEDS ORDERED: METF-873 PO (17:27)
[2021-03-01] MEDS ORDERED: MULT-1116 PO (17:27)
[2021-03-01] MEDS ORDERED: THIA100T72 PO (17:27)
[2021-03-01] MEDS ORDERED: LISI20TA PO (17:27)
[2021-03-01] MEDS: ZOLPIDEM TARTRATE 5MG TABLET PO PRN (21:27)
[2021-03-02 06:50] LABS: HEMATOCRIT. 41.3 % (36.0-48.0); MEAN CORPUSCULAR HEMOGLOBIN 32.8 pg (28.0-32.0); MEAN CORPUSCULAR VOLUME 96.9 fL (81.0-99.0); MEAN PLATELET VOLUME 9.2 fl (7.4-10.4); PLATELET 173 x1000/uL (130-400); RED BLOOD CELL COUNT 4.26 mill/uL (4.2-5.4); RED CELL DISTRIBUTION WIDTH 15.5 % (11.6-14.6)
[2021-03-02 06:53] LABS: CHLORIDE 100 mEq/L (98-107)
[2021-03-02 06:59] LABS: PHOSPHORUS 2.2 mg/dL (2.5-4.9)
[2021-03-02] MEDS: SUCRALFATE 1 G/10 ML UDC PO SCH ×4 (07:18→21:52)
[2021-03-02 08:00] VITALS: BP 159/65
[2021-03-02] MEDS: PANTOPRAZOLE SODIUM 40 MG/VIAL IV SCH (10:04)
[2021-03-02] MEDS: AMLODIPINE 10MG TABLET PO SCH ×2 (10:09→18:23)
[2021-03-02] MEDS: ENOXAPARIN 30MG/0.3ML SYR SUBCUT SCH (10:09)
[2021-03-02] MEDS: ONDANSETRON HCL 4MG/2ML INJ IV PRN ×3 (10:31→23:07)
[2021-03-02] MEDS: KETOROLAC 15MG/ML VIAL IV PRN ×2 (11:31→21:53)
[2021-03-02 12:00] VITALS: BP 150/69
[2021-03-02 15:06] LABS: PLATELET ESTIMATE NORMAL
[2021-03-02] MEDS: ACETAMINOPHEN 325MG TABLET PO PRN (15:21)
[2021-03-02 20:00] VITALS: BP 158/68
[2021-03-02] MEDS: ZOLPIDEM TARTRATE 5MG TABLET PO PRN (23:07)
[2021-03-03] VITALS: BP 122/58
[2021-03-03 04:00] VITALS: BP 141/66
[2021-03-03] MEDS: SUCRALFATE 1 G/10 ML UDC PO SCH ×4 (06:28→20:10)
[2021-03-03] MEDS: KETOROLAC 15MG/ML VIAL IV PRN (06:31)
[2021-03-03] MEDS: PANTOPRAZOLE SODIUM 40 MG/VIAL IV SCH (09:25)
[2021-03-03] MEDS: ONDANSETRON HCL 4MG/2ML INJ IV PRN ×4 (09:25→21:58)
[2021-03-03] MEDS: AMLODIPINE 10MG TABLET PO SCH ×2 (09:26→16:51)
[2021-03-03] MEDS: ENOXAPARIN 30MG/0.3ML SYR SUBCUT SCH (09:28)
[2021-03-03] MEDS: ACETAMINOPHEN 325MG TABLET PO PRN (12:47)
[2021-03-03 20:00] VITALS: BP 138/64
[2021-03-03] MEDS: ZOLPIDEM TARTRATE 5MG TABLET PO PRN (22:05)
[2021-03-04] VITALS: BP 112/46
[2021-03-04 04:00] VITALS: BP 133/50
[2021-03-04] MEDS: SUCRALFATE 1 G/10 ML UDC PO SCH ×2 (06:37→14:28)
[2021-03-04] MEDS: ONDANSETRON HCL 4MG/2ML INJ IV PRN ×2 (06:46→14:28)
[2021-03-04] MEDS ORDERED: FAMOTIDINE 20MG/2ML VIAL IV SCH (09:00)
[2021-03-04] MEDS: ENOXAPARIN 30MG/0.3ML SYR SUBCUT SCH (09:18)
[2021-03-04] MEDS: AMLODIPINE 10MG TABLET PO SCH (09:19)
[2021-03-04 16:04] VITALS: BP 18/121
== END 2021-03-04 16:30 | disposition home health service (06) | DRG 241 ==
LOC: ER 01:16 → 6EST 05:43 → ENRESERV 09:08
PROVIDERS: ADMIT Internal Medicine; ATTEND Internal Medicine
DX: K29.20 Alcoholic gastritis without bleeding (principal); E87.2 Acidosis; E87.1 Hypo-osmolality and hyponatremia; R74.01 Elevation of levels of liver transaminase levels; Y90.7 Blood alcohol level of 200-239 mg/100 ml; I10 Essential (primary) hypertension; J44.9 Chronic obstructive pulmonary disease, unspecified; E78.00 Pure hypercholesterolemia, unspecified; Y90.9 Presence of alcohol in blood, level not specified; F10.129 Alcohol abuse with intoxication, unspecified; F10.139 Alcohol abuse with withdrawal, unspecified; Z79.899 Other long term (current) drug therapy; Z79.82 Long term (current) use of aspirin; Z82.49 Family history of ischemic heart disease and other diseases of the circulatory system
CPT/HCPCS: 36415; 74176; 80053; 80320; 82607; 82746; 83540; 83550; 83605; 83735; 84100; 85025; 93970; 94640; 97162; 97166; 99285; C9113; J1650; J1885; J2405; J2765; J3411; J3490; J7030; J7042; G0480